=== PATIENT | female | born 1970 | race Caucasian/White ===

== ENCOUNTER 2021-01-17 08:39 | Day surgery (SDC) | payer OTHER ==
[2021-01-14 11:35] VITALS: BMI 29.9
[2021-01-17] MEDS ORDERED: PROPOFOL 20 ML ONE ×3 (09:15)
[2021-01-17] MEDS ORDERED: LIDOCAINE HCL/PF 2% SDV 5ML VIAL ONE (09:15)
[2021-01-17 10:08] VITALS: TEMP 97.8
[2021-01-17] MEDS ORDERED: LOCK ITEM NR ONE (10:53)
[2021-01-17 12:01] VITALS: BP 105/65; PULSE 62
== END 2021-01-17 10:45 | disposition home or self-care (01) ==
LOC: FASU-ENDO 08:39
PROVIDERS: ATTEND Internal Medicine Gastroenterology
PROC: 0DJD8ZZ Inspection of Lower Intestinal Tract, Via Natural or Artificial Opening Endoscopic (ICD-10-PCS; principal; 2021-01-17 09:21)
DX: Z12.11 Encounter for screening for malignant neoplasm of colon (principal); K57.30 Diverticulosis of large intestine without perforation or abscess without bleeding